=== PATIENT | female | born 1985 | race Caucasian/White ===

== ENCOUNTER → 2017-02-06 | Outpatient (CLI) | payer OTHER | LOC: US 02-05 12:30 → KOH-I 08:37 → US 09:00 | DX: R93.421 Abnormal radiologic findings on diagnostic imaging of right kidney (principal); R93.422 Abnormal radiologic findings on diagnostic imaging of left kidney | CPT/HCPCS: 76775 ==

== ENCOUNTER → 2021-01-02 | Outpatient (CLI) | payer BC, OTHER | LOC: KOH-I 08:00 | DX: R10.0 Acute abdomen (principal) | CPT/HCPCS: 76705 ==

== ENCOUNTER → 2022-06-18 | Outpatient (CLI) | payer BC | LOC: EMI 08:00 | DX: M50.322 Other cervical disc degeneration at C5-C6 level (principal); M50.21 Other cervical disc displacement, high cervical region; M48.02 Spinal stenosis, cervical region; M43.22 Fusion of spine, cervical region | CPT/HCPCS: 72141 ==